=== PATIENT | female | born 1955 ===

== ENCOUNTER 2024-03-14 14:09 | Inpatient (IN) | payer OTHER ==
[~2024-03-14] VITALS: Ht 154.9 cm; Wt 68.0 kg
[2024-03-14 13:50] VITALS: BP 112/75
[~2024-03-14 14:09] MED LIST: ANASTROZOLE1 MG PO; CLARITIN10 M1 PO; EZALLOR SPRINKL20 MG PO; OMEPRAZOLE20 M2 PO; SYNJARDY 12.5-1 EACH PO
[2024-03-16] MEDS ORDERED: GENTAMICIN SULFATE 40 MG/ML VIAL ONE (18:15)
[2024-03-16] MEDS ORDERED: POVIDONE-IODINE 118 ML BOTT TOP ONE (18:16)
[2024-03-16] MEDS ORDERED: CHLORHEXIDINE GLUCONATE 120 ML BOTTLE TOP ONE (18:16)
[2024-03-16] MEDS ORDERED: CEFAZOLIN SODIUM 1,000 MG VIAL ONE ×2 (18:16→21:44)
[2024-03-16] MEDS ORDERED: 0.9 % SODIUM CHLORIDE 1,000 ML IV SCH (20:30)
[2024-03-16] MEDS ORDERED: ONDANSETRON HCL 2 MG/ML VIAL IV PRN (20:30)
[2024-03-16] MEDS ORDERED: MORPHINE SULFATE 4 MG/ML VIAL IV PRN (20:30)
[2024-03-16] MEDS ORDERED: OxyCODONE HCL/APAP UD (PERCOCET) PO PRN (20:30)
[2024-03-16] MEDS ORDERED: CEFAZOLIN SODIUM 1,000 MG VIAL IV SCH (21:00)
[2024-03-16] MEDS ORDERED: FAMOTIDINE/PF 20 MG/10 ML SYRINGE IV PUSH SCH (21:00)
[2024-03-16] MEDS ORDERED: MORPHINE SULFATE 4 MG/ML VIAL IV ONE ×2 (21:30→22:00)
[2024-03-16] MEDS ORDERED: FAMOTIDINE/PF 20 MG/2 ML VIAL ONE (21:44)
[2024-03-16 22:33] VITALS: BP 104/70; O2SAT 95
[2024-03-17 00:58] VITALS: BP 115/64; O2SAT 100
[2024-03-17 08:00] VITALS: BP 115/67; O2SAT 96
[2024-03-17] MEDS ORDERED: FAMOTIDINE/PF 20 MG/2 ML VIAL IV PUSH SCH (10:58)
[2024-03-17] MEDS ORDERED: MORPHINE SULFATE 4 MG/ML CARTRIDGE IV PRN (11:00)
== END 2024-03-17 13:14 | disposition home or self-care (01) | DRG 580 ==
LOC: ADM 15:00 → SURH 03-16 06:00 → CIR.AMB 03-16 06:00 → O/R 03-16 06:37 → EDSTATUS 03-16 15:00 → SURH 03-16 15:00 → CIR.AMB 03-16 15:00 → OB/GYN 03-16 21:23 → SURH 03-16 21:26
PROVIDERS: ADMIT Surgery; ATTEND Surgery
PROC: 0HTT0ZZ Resection of Right Breast, Open Approach (ICD-10-PCS; 2024-03-16)
PROC: C71L1ZZ Planar Nuclear Medicine Imaging of Upper Chest Lymphatics using Technetium 99m (Tc-99m) (ICD-10-PCS; 2024-03-16)
PROC: 07B50ZZ Excision of Right Axillary Lymphatic, Open Approach (ICD-10-PCS; principal; 2024-03-16 15:45)
DX: C50.411 Malignant neoplasm of upper-outer quadrant of right female breast (principal); C77.3 Secondary and unspecified malignant neoplasm of axilla and upper limb lymph nodes; Z90.11 Acquired absence of right breast and nipple

== ENCOUNTER 2024-03-15 14:25 | Outpatient (CLI) | payer OTHER | END 2024-03-15 14:26 | disposition home or self-care (01) | LOC: TOM 14:25 | PROVIDERS: ATTEND Surgery | DX: R91.1 Solitary pulmonary nodule (principal) ==